=== PATIENT | female | born 1970 | race Two or more races ===

== ENCOUNTER 2017-05-04 09:16 | Emergency (ER) | payer OTHER, BC ==
[2017-05-04 10:39] VITALS: BP 98/62
--- NOTE | 2017-05-04 11:16 | UC ---
Throat Pain/Nasal [place] HPI - History of Current Complaint Chief Complaint: UCGeneralIllness Stated Complaint: FEVER Time Seen by Provider: 05/04/17 10:43 Hx Obtained From: Patient Hx Last Menstrual Period: 05/05 Onset/Duration: Gradual Onset - had "tickle" in throat 4 day ago, body aches next day and last night ST and fever 102. throat very sore today Severity: Worse Since: - today Associated Signs & Symptoms: Positive: Fever - Allergies/Home Medications Allergies/Adverse Reactions: Allergies Allergy/AdvReac Type Severity Reaction Status Date / Time Clindamycin Allergy Rash Verified 05/04/17 09:51 Penicillins Allergy Rash Verified 05/04/17 09:51 red meat Allergy Nausea And Uncoded 05/04/17 09:51 Vomiting Home Medications: Home Medications Acetaminophen [Eq Acetaminophen] 650 mg PO 05/04/17 [History] Cyanocobalamin INJ * [Vitamin B12 INJ *] 1,000 mcg IM MONTHLY 05/04/17 [History Confirmed 05/04/17] PMH/Surg Hx/FS Hx/Imm Hx Previously Healthy: Yes Endocrine History: Hypothyroidism GI/ History: Other - pernicious anemia Other GI/ History: pernicious anemia - Surgical History Surgical History: Yes Surgery Procedure, Year, and Place: c-sections x 2 - Family History Known Family History: Positive: None - Social History Occupation: Unemployed Lives: With Family Alcohol Use: Occasionally Substance Use Type: None Smoking Status (MU): Never Smoked Tobacco - Immunization History Most Recent Pneumonia Vaccination: 2012 Review of Systems Constitutional: Fever, Other - body aches Skin: Negative Eyes: Negative ENT: Sore Throat Respiratory: Negative Cardiovascular: Negative All Other Systems Reviewed And Are Negative: Yes Physical Exam Triage Information Reviewed: Yes Appearance: Well-Appearing, No Pain Distress, Well-Nourished Vital Signs: Initial Vital Signs Temp 98.4 F 05/04/17 10:23 Pulse 79 05/04/17 10:23 Resp 18 05/04/17 10:23 BP 98/62 05/04/17 10:23 Pulse Ox 100 05/04/17 10:23 Eye Exam: Normal ENT: Positive: Pharyngeal erythema, TMs normal, Tonsillar swelling, Tonsillar exudate Respiratory Exam: Normal Cardiovascular Exam: Normal Neurological Exam: Normal Psychological Exam: Normal Skin Exam: Normal Throat Pain/Nasal Course/Dx - Differential Dx/Diagnosis Differential Diagnosis/HQI/PQRI: Pharyngitis, Tonsillitis, URI Provider Diagnoses: tonsilitis Discharge - Discharge Plan Condition: Good Disposition: HOME Prescriptions: Azithromycin TAB* [Zithromax TAB (Z-YOGI) 250 mg #6 tabs] 2 tab PO .TODAY, THEN 1 DAILY #1 yogi
== END 2017-05-04 11:30 | disposition home or self-care (01) ==
LOC: UCEAST 09:16
DX: J03.90 Acute tonsillitis, unspecified (principal)
CPT/HCPCS: 87651; 99212; G0463

== ENCOUNTER 2018-10-16 12:57 | Emergency (ER) | payer OTHER ==
--- OUTSIDE RECORDS SUMMARY | 2018-10-16 13:02 | XMS REPORT ---
:1970 External Reference #:[id number] Author Organization [facility] Address [address] [place] [address] Phone [phone] Care Team Providers Name Role Phone Bonny Odonnell M.D. Care Team Information Embedded Systems Developer Unavailable Bonny Odonnell M.D. Primary Care Physician Unavailable Payers Type Date Identification Payment Subscriber Numbers Provider Health Maintenance Effective: Policy Number: [place] [employer] [place] [employer] [facility] ([facility] 03/12/2018 [id number] [facility] Group Number: [id number] [address] PayID: [id number] [place] [address] Problems Date Description Provider Status Onset: 09/01/2018 Moderate major depression, single episode Bonny Odonnell M.D. Active Onset: 12/30/2017 Alopecia totalis Bonny Odonnell M.D. Active Onset: 06/30/2017 Cobalamin deficiency Bonny Odonnell M.D. Active Onset: 06/30/2017 Hypothyroidism Bonny Odonnell M.D. Active Family History Date Family Member(s) Problem(s) Comments : (age 66 Years) Father due to [place] Father Coronary Artery Disease (CAD) Mother Hypothyroidism First Daughter Alexandr Thyroiditis Maternal Grandmother Hypothyroidism Social History Type Date Description Comments Education Highest Level Completed, [place] Master's Degree Marital Status . 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[employer]; works in [employer] services Cigarette Use 06/30/2017 Former Cigarette Smoker intermittently; started [age], quit 2015 ETOH Use Social Alcohol 2x/month Smoking Patient is a former smoker Exercise Type/Frequency Exercises regularly mehdi General Hx Text from [place] Allergies, Adverse Reactions, Alerts Date Description Reaction Status Severity Comments 06/30/2017 Penicillins active 06/30/2017 Clindamycin active 06/30/2017 Meat active 08/25/2018 Peanuts Itching, tingling active Medications Medication Date Status Form Strength Qnty SIG Indications Ordering Provider Levothyroxine 09/01 Active Tablets 100mcg 30tab 1 by mouth Bonny Sodium s every day Anna Odonnell Escitalopram 09/01 Active Tablets 10mg 45tab 1.5 tabs by F32.1 Bonny Oxalate s mouth every [place], M.DEfrain Cyanocobalamin Active Solution 1000mcg/M inject 1ml Unknown /0000 L intramuscular ly once a month Levothyroxine 02/24 Hx Tablets 88mcg 30tab 1 by mouth Bonny Sodium s every day Mely Odonnell M.D. 09/01 Levothyroxine 01/06 Hx Tablets 100mcg 30tab 1 by mouth Bonny Sodium s every day Mely Odonnell M.D. 02/24 Levothyroxine 06/30 Hx Tablets 112mcg 90tab 1 by mouth Bonny Sodium s every day Mely Odonnell M.D. 01/06 Vitamin 06/30 Hx Injection 1000 monthly Bonny B-Complex Mely Odonnell M.D. 12/29 Vital Signs Date Vital Result Comment 10/07/2018 BP Systolic 110 mmHg BP Diastolic 64 mmHg Heart Rate 68 /min Body Temperature 97.7 F Respiratory Rate 16 /min Weight 196.00 lb 09/01/2018 BP Systolic 118 mmHg BP Diastolic 70 mmHg Heart Rate 74 /min Body Temperature 97.3 F Respiratory Rate 20 /min O2 % BldC Oximetry 99 % on Ra Weight 196.00 lb 05/15/2018 BP Systolic 118 mmHg BP Diastolic 80 mmHg Heart Rate 76 /min Body Temperature 98.8 F Height 68 inches 5'8" Weight 195.00 lb BMI (Body Mass Index) 29.6 kg/m2 12/30/2017 BP Systolic 104 mmHg BP Diastolic 60 mmHg Heart Rate 72 /min Body Temperature 97.7 F Respiratory Rate 16 /min Height 68 inches 5'8" Weight 194.00 lb BMI (Body Mass Index) 29.5 kg/m2 06/30/2017 BP Systolic 116 mmHg BP Diastolic 70 mmHg Heart Rate 76 /min Body Temperature 97.7 F Respiratory Rate 16 /min Height 68 inches 5'8" Weight 178.38 lb BMI (Body Mass Index) 27.1 kg/m2 Results Test Date Test Result H/L Range Note Laboratory test finding 10/02/2018 TSH 3.17 mIU/L 0.50-6.00 Free T4 1.22 ng/dL 0.75-1.54 Laboratory test finding 08/28/2018 TSH 13.46 mIU/L High 0.50-6.00 1 Free T4 1.10 ng/dL 0.75-1.54 Laboratory test finding 05/15/2018 Quickstrep negative Negative Laboratory test finding 04/04/2018 TSH 5.53 mIU/L 0.50-6.00 Free T4 1.44 ng/dL 0.75-1.54 Laboratory test finding 02/14/2018 TSH 0.52 mIU/L 0.50-6.00 Free T4 1.80 ng/dL High 0.75-1.54 2 Laboratory test finding 12/30/2017 TSH 0.33 mIU/L Low 0.50-6.00 Free T4 1.94 ng/dL High 0.75-1.54 Serum Iron 100 g/dL 60-150 Ferritin 85 ng/mL 6-115 Vitamin B-12 369 pg/mL 230-1050 CBC Electronic a 12/30/2017 WBC 5.6 x10^3/UL 4.0-10.0 RBC 5.06 x10^6/UL 3.93-6.00 HGB 13.8 g/dL 12.0-17.0 HCT 42 % 35-50 MCV 83.0 fL 80.0-95.0 MCH 27.3 pg 25.6-32.2 MCHC 32.9 g/dL 32.2-36.0 RDW-CV 17.0 % High 11.6-14.4 PLT 219 x10^3/UL 163-400 MPV 10.3 fL 9.4-12.4 Renato# 3.52 x10^3/UL 1.56-6.13 Lymph# 1.53 x10^3/UL 1.18-3.74 Smith# 0.46 x10^3/UL 0.24-0.82 Eos # 0.1 x10^3/UL 0.0-0.5 Baso # 0.03 x10^3/UL 0.01-0.08 Renato% 62.7 % 34.0-70.0 Lymph % 27.3 % 20.0-52.0 Smith% 8.2 % 5.0-12.0 Eos% 1.1 % 0.7-7.0 Baso% 0.5 % 0.1-1.2 Comprehensive Metabolic Prof 12/30/2017 Sodium 143 mEq/L 134-149 Potassium 4.4 mEq/L 3.6-5.5 Chloride 101 mEq/L 94-112 Carbon Dioxide 27 mEq/L 21-32 Glucose 113 mg/dL High 70-105 3 BUN 9 mg/dL 6-26 Creatinine 0.8 mg/dL 0.6-1.4 BUN/Creat Ratio 11.3 CALC 8.0-36.0 Calcium 9.6 mg/dL 8.6-10.2 Total Protein 7.3 g/dL 6.4-8.3 Albumin 4.7 g/dL 3.8-5.5 Globulin 2.6 g/dL 2.0-4.8 A/G Ratio 1.8 CALC 0.6-2.3 Alk. Phosphatase 48 U/L 30-110 Alt (SGPT) 16 U/L 7-35 Ast (Sgot) 16 U/L 5-34 Total Bilirubin 0.6 mg/dL 0.2-1.3 GFR Non- >60 ml/min/1.73m^ >=60 GFR >60 ml/min/1.73m^ >=60 Lipid Profile 12/30/2017 Cholesterol 191 mg/dL 120-200 Triglycerides 124 mg/dL 30-200 HDL Cholesterol 54 mg/dL 30-85 LDL (Calculated) 112 CALC 0-129 VLDL Cholesterol 25 mg/dL 0-50 HDL Risk Factor 3.5 CALC 0.0-4.4 CBC Auto Diff 11/22/2017 White Blood Count 5.5 10^3/uL 3.5-10.8 Red Blood Count 4.39 10^6/uL 4.0-5.4 Hemoglobin 11.2 g/dL Low 12.0-16.0 Hematocrit 34 % Low 35-47 Mean Corpuscular Volume 78 fL Low 80-97 Mean Corpuscular Hemoglobin 26 pg Low 27-31 Mean Corpuscular HGB Conc 33 g/dL 31-36 Red Cell Distribution Width 15 % 10.5-15 Platelet Count 221 10^3/uL 150-450 Mean Platelet Volume 9 um3 7.4-10.4 Abs Neutrophils 3.3 10^3/uL 1.5-7.7 Abs Lymphocytes 1.7 10^3/uL 1.0-4.8 Abs Monocytes 0.4 10^3/uL 0-0.8 Abs Eosinophils 0 10^3/uL 0-0.6 Abs Basophils 0 10^3/uL 0-0.2 Abs Nucleated RBC 0 10^3/uL Granulocyte % 59.9 % 38-83 Lymphocyte % 31.0 % 25-47 Monocyte % 7.6 % 1-9 Eosinophil % 0.8 % 0-6 Basophil % 0.7 % 0-2 Nucleated Red Blood Cells % 0 Iron & Iron Binding Capacity 11/22/2017 Iron 31 g/dL Low 50-212 Unsaturated Iron Binding 437 g/dL Total Iron Binding Capacity 468 g/dL High 250-450 % Iron Saturation 7 % Low 15-55 Laboratory test finding 11/22/2017 Ferritin < 10.0 ng/mL Low 11-307 Vitamin B12 442 pg/mL 180-914 4 1 RESULTS VERIFIED BY REPEAT ANALYSIS 2 RESULTS VERIFIED BY REPEAT ANALYSIS 3 RESULTS VERIFIED BY REPEAT ANALYSIS 4 Normal Range 180 to 914 Indeterminate Range 145 to 180 Deficient Range <145 Procedures Date CPT Code Description Status 09/17/2018 Mammogram Completed 09/01/2018 73740 Brief Emotional/Behav Assessment W/ Scoring Doc Per Completed Standard Inst 09/01/2018 14437 Pulse Oximetry Completed 09/01/2018 05571 Electrocardiogram Complete Completed 09/16/2017 Mammogram Completed Encounters Type Date Location Provider CPT E/M Dx Office Visit 09/01/2018 11:20a [facility] Bonny Odonnell M.D. 95593 R00.2 F32.1 E03.9 Office Visit 05/15/2018 11:30a [place] [address] J02.9 Office Visit 12/30/2017 8:00a [facility] Bonny Odonnell M.D. 93506 E03.9 F33.41 D51.9 L63.0 Office Visit 06/30/2017 8:00a [facility] Bonny Odonnell M.D. 36502 E03.9 D51.9 F33.41 Plan of Care Future Appointment(s):01/13/2019 3:50 pm - Bonny Odonnell M.D. at [facility] [id number]/08/2019 4:30 pm - Bonny Odonnell M.D. at [facility] [id number]/07/2018 - Bonny Odonnell M.D.F32.1 Major depressive disorder, single episode, moderateNew Labs:CBC Electronic ([facility])CCS-Comp And Lipid ([facility])Comments:increase to 1.5 tabs a day, message in 1-2 weeks how its doingFollow up:[id number] Hypothyroidism , unspecifiedNew Labs:T4 & TSHComments:stable on medicationFollow up:3 mo labsAllComments:~B_~U_Medication Management~b_~u_ Patient Understands medications she's taking? Yes No Are there Barriers to Adherence? Yes No Has the patient been asked about herbal supplements and therapies, and OTC meds? Yes No
[2018-10-16 13:04] VITALS: BP 112/66
--- NOTE | 2018-10-16 14:57 | UC ---
Throat Pain/Nasal [place] HPI - HPI Summary HPI Summary: 48-year-old female presents with complaints of chills, earache, and a productive cough for yellow sputum for the past 3 weeks. Also notes some mild nausea. Denies fever, nasal congestion, sinus pain, sore throat, chest pain, shortness of breath, abdominal pain, vomiting, or diarrhea. - History of Current Complaint Chief Complaint: UCRespiratory Stated Complaint: THROAT PAIN Time Seen by Provider: 10/16/18 14:24 Hx Obtained From: Patient Hx Last Menstrual Period: 10/05/18 Pain Intensity: 2 - Allergies/Home Medications Allergies/Adverse Reactions: Allergies Allergy/AdvReac Type Severity Reaction Status Date / Time clindamycin Allergy Rash Verified 10/16/18 13:04 peanut Allergy Itching Verified 10/16/18 13:04 Penicillins Allergy Rash Verified 10/16/18 13:04 red meat Allergy Nausea And Uncoded 10/16/18 13:04 Vomiting Home Medications: Home Medications Citalopram TAB* [Celexa TAB*] 15 mg PO DAILY 10/16/18 [History Confirmed ] PMH/Surg Hx/FS Hx/Imm Hx Previously Healthy: Yes Endocrine History: Hypothyroidism Psychological History: Depression - Surgical History Surgical History: Yes Surgery Procedure, Year, and Place: c-sections x 2 - Family History Known Family History: Positive: Non-Contributory - Social History Occupation: Employed Full-time Lives: With Family Alcohol Use: Occasionally Substance Use Type: None Smoking Status (MU): Never Smoked Tobacco - Immunization History Most Recent Pneumonia Vaccination: 2012 Review of Systems All Other Systems Reviewed And Are Negative: Yes Constitutional: Negative: Fever, Chills Eyes: Negative: Drainage, Eye Redness ENT: Positive: Sore Throat, Ear Ache. Negative: Nasal Discharge, Sinus Congestion, Sinus Pain/Tenderness Respiratory: Positive: Cough. Negative: Shortness Of Breath Cardiovascular: Negative: Palpitations, Chest Pain Gastrointestinal: Negative: Abdominal Pain, Vomiting, Nausea Is Patient Immunocompromised?: No Physical Exam - Summary Physical Exam Summary: GENERAL APPEARANCE: Well developed, well nourished, alert and cooperative, and appears to be in no acute distress. EYES: Conjunctiva clear. No discharge. Vision is grossly intact. EARS: External auditory canals and tympanic membranes clear, hearing grossly intact. NOSE: No nasal discharge. THROAT: Mild pharyngeal erythema, 1+ tonsils with exudate. Oral cavity normal. Teeth and gingiva in good general condition. NECK: Neck supple, non-tender without lymphadenopathy. CARDIAC: Normal S1 and S2. No S3, S4 or murmurs. Rhythm is regular. There is no peripheral edema, cyanosis or pallor. Extremities are warm and well perfused. Capillary refill is less than 2 seconds. LUNGS: Clear to auscultation and percussion without rales, rhonchi, wheezing or diminished breath sounds. ABDOMEN: Positive bowel sounds. Soft, nondistended, nontender. No guarding or rebound. No masses or hepatosplenomegally. MUSKULOSKELETAL: ROM intact to all extremities. No joint erythema or tenderness. Normal muscular development. Normal gait. SKIN: Skin normal color, texture and turgor with no lesions or eruptions. Triage Information Reviewed: Yes Vital Signs: Initial Vital Signs Temp 97.7 F 10/16/18 12:59 Pulse 78 10/16/18 12:59 Resp 14 10/16/18 12:59 BP 112/66 10/16/18 12:59 Pulse Ox 100 10/16/18 12:59 Vital Signs Reviewed: Yes Diagnostics - Laboratory Diagnostic Studies Completed/Ordered: Rapid strep negative. Throat Pain/Nasal Course/Dx - Course Course Of Treatment: 48-year-old female presents with complaints of chills, earache, and a productive cough for yellow sputum for the past 3 weeks. Also notes some mild nausea. Denies fever, nasal congestion, sinus pain, sore throat , chest pain, shortness of breath, abdominal pain, vomiting, or diarrhea. Afebrile. Vital signs stable. Exam revealed some mild pharyngeal and tonsillar erythema with tonsillar exudate, clear bilateral breath sounds, and occasional nonproductive cough. Rapid strep was negative. Will treat for an acute bronchitis with a course of azithromycin and provided her with a prescription for Tessalon Perles one Every 8 hours as needed for cough. She is to follow-up with her primary care provider in 7 days if symptoms persist. Warning symptoms were reviewed with the patient. Verbalizes understanding and agrees with plan of care. - Differential Dx/Diagnosis Differential Diagnosis/HQI/PQRI: Otitis Media, Pharyngitis, Tonsillitis, URI, Other - Bronchitis Provider Diagnosis: Acute bronchitis Discharge - Sign-Out/Discharge Documenting (check all that apply): Patient Departure All imaging exams completed and their final reports reviewed: No Studies - Discharge Plan Condition: Stable Disposition: HOME Prescriptions: Azithromyxin YOGI (NF) [Z-Yogi (Zithromax) 250 mg tabs #6] 2 tab PO .TODAY, THEN 1 DAILY #6 tab Benzonatate CAP* [Tessalon 100 MG CAP*] 100 mg PO TID PRN #21 cap PRN Reason: Cough Patient Education Materials: Acute Bronchitis (ED) Referrals: Bonny Odonnell MD [Primary Care Provider] - 7 Days (If symptoms persist.) Additional Instructions: Your history and exam are consistent with an acute bronchitis. Considering the duration of your symptoms we will start you on an antibiotic. Take azithromycin 2 tabs today then 1 tab a day for next 4 days. Use Tessalon Perles 1 cap every 8 hours as needed for cough. Drink plenty of fluids to avoid dehydration especially if you are running any fever. Take over the counter acetaminophen (Tylenol) or ibuprofen (Advil, Motrin) according to directions as needed for pain or fever. Use salt water gargles several times a day if you have a sore throat. You may also use Chloraseptic spray or Cepacol lonzenges according to directions which contain a numbing medication and can provide some temporary relief from your sore throat. Follow up with your primary care provider in 7 days if symptoms persist. Seek immediate medical attention in the emergency room if you have fever greater than 100.5 F despite taking acetaminophen or ibuprofen, have chest pain , difficulty breathing, are unable to swallow, or have any worsening of symptoms. - Billing Disposition and Condition Condition: STABLE Disposition: Home
== END 2018-10-16 15:20 | disposition home or self-care (01) ==
LOC: UCEAST 12:57
DX: J20.9 Acute bronchitis, unspecified (principal); Z88.1 Allergy status to other antibiotic agents; Z91.018 Allergy to other foods; Z91.010 Allergy to peanuts
CPT/HCPCS: 87651; 99212; G0463

== ENCOUNTER 2019-03-16 07:56 | Emergency (ER) | payer OTHER ==
--- OUTSIDE RECORDS SUMMARY | 2019-03-16 08:00 | XMS REPORT | Continuity of Care Document ---
:1970 External Reference #:[id number] Author Name Bonny Odonnell M.D. Address [address] [facility] [place] [address] Care Team Providers Name Role Phone Bonny Odonnell M.D. Care Team Information Department Chair Unavailable Bonny Odonnell M.D. Primary Care Physician Unavailable Payers Date Identification Numbers Payment Provider Subscriber Effective: Policy Number: [id number] [employer] Stefano Olivarez 2018 Group Number: [id number] [id number] PayID: [id number] [place] [address] Advance Directives Description No Information Available Problems Active Problems Provider Date Moderate major depression, single episode Bonny Odonnell M.D. Onset: 2017 Alopecia totalis Bonny Odonnell M.D. Onset: 12/30/2017 Cobalamin deficiency Bonny Odonnell M.D. Onset: 06/30/2017 Hypothyroidism Bonny Odonnell M.D. Onset: 06/30/2017 Family History Date Family Member(s) Observation Comments General Heart Disease : (age 66 Years) Father due to PR Father Coronary Artery Disease (CAD) Mother Hypothyroidism Children 2 First Son Seasonal Allergies First Daughter Alexandr Thyroiditis Maternal Grandmother Hypothyroidism Social History Type Date Description Comments Sex Unknown Education Highest Level [employer] Completed, Master's Degree Marital Status . 20 years 2020 Lives With Spouse Lives With Children x2 Diet Patient is a vegetarian mainly Occupation [employer]; works in [employer] Tobacco Use Start: Unknown Former Cigarette Smoker intermittently; End: Unknown started , quit 2016 Smoking Status Reviewed: 02/20/19 Former Cigarette Smoker intermittently; started -, quit 2015 ETOH Use Social Alcohol 2x/month Tobacco Use Start: Unknown Patient is a former End: Unknown smoker Exercise Type/Frequency Exercises regularly mehdi Currently Active Patient is currently sexually active Condom Use Occasionally Contraceptive Methods Current methods include rhythm method Allergies, Adverse Reactions, Alerts Active Allergies Reaction Severity Comments Date Penicillins 06/30/2017 Clindamycin 06/30/2017 Meat 06/30/2017 Peanuts Itching, tingling 08/25/2018 Medications Active Medications SIG Qnty Indications Ordering Date Provider Levothyroxine Sodium 1 by mouth every day 30tabs [facility], 01/13/2019 M.D. 112mcg Tablets Escitalopram Oxalate 3 tabs daily 90tabs F32.1 [facility], 01/13/2019 M.D. 5mg Tablets Cyanocobalamin inject 1ml Unknown intramuscularly once 1000mcg/ML Solution a month History Medications Levothyroxine Sodium 1 by mouth every 30tabs [facility], 09/01/2018 - day M.D. 01/13/2019 100mcg Tablets Escitalopram Oxalate 1.5 tabs by 45tabs F32.1 [facility] 09/01/2018 - 10mg mouth every day M.D. 01/13/2019 Tablets Levothyroxine Sodium 1 by mouth every 30tabs [facility], 02/24/2018 - day M.D. 09/01/2018 88mcg Tablets Levothyroxine Sodium 1 by mouth every 30tabs [facility], 01/06/2018 - day M.D. 02/24/2018 100mcg Tablets Levothyroxine Sodium 1 by mouth every 90tabs [facility] 06/30/2017 - day M.D. 01/06/2018 112mcg Tablets Vitamin B-Complex 100 monthly [facility] 06/30/2017 - M.D. 12/29/2017 1000 Injection Immunizations Description No Information Available Vital Signs Date Vital Result Comment 02/20/2019 9:18am BP Systolic 98 mmHg BP Diastolic 52 mmHg Heart Rate 80 /min Body Temperature 98.0 F Respiratory Rate 16 /min Height 68 inches 5'8" Weight 204.00 lb BMI (Body Mass Index) 31.0 kg/m2 01/13/2019 3:30pm BP Systolic 118 mmHg BP Diastolic 70 mmHg Heart Rate 68 /min Body Temperature 98.5 F Respiratory Rate 16 /min Weight 205.00 lb 10/07/2018 3:13pm BP Systolic 110 mmHg BP Diastolic 64 mmHg Heart Rate 68 /min Body Temperature 97.7 F Respiratory Rate 16 /min Weight 196.00 lb 09/01/2018 11:03am BP Systolic 118 mmHg BP Diastolic 70 mmHg Heart Rate 74 /min Body Temperature 97.3 F Respiratory Rate 20 /min O2 % BldC Oximetry 99 % on Ra Weight 196.00 lb 05/15/2018 11:11am BP Systolic 118 mmHg BP Diastolic 80 mmHg Heart Rate 76 /min Body Temperature 98.8 F Height 68 inches 5'8" Weight 195.00 lb BMI (Body Mass Index) 29.6 kg/m2 12/30/2017 8:06am BP Systolic 104 mmHg BP Diastolic 60 mmHg Heart Rate 72 /min Body Temperature 97.7 F Respiratory Rate 16 /min Height 68 inches 5'8" Weight 194.00 lb BMI (Body Mass Index) 29.5 kg/m2 06/30/2017 8:10am BP Systolic 116 mmHg BP Diastolic 70 mmHg Heart Rate 76 /min Body Temperature 97.7 F Respiratory Rate 16 /min Height 68 inches 5'8" Weight 178.38 lb BMI (Body Mass Index) 27.1 kg/m2 Results Test Date Facility Test Result H/L Range Note Laboratory test 02/20/2019 [facility] hCG, Beta <pending> finding [address] [facility] [address], [place] [address] Qnt, Serum (607)- - Comprehensive 02/12/2019 [facility]) Sodium 139 mEq/L 134-149 Metabolic Prof Potassium 4.7 mEq/L 3.6-5.5 Chloride 100 mEq/L 94-112 Carbon Dioxide 30 mEq/L 21-32 Glucose 113 mg/dL High 70-105 BUN 8 mg/dL 6-26 Creatinine 0.9 mg/dL 0.6-1.4 BUN/Creat Ratio 8.9 CALC 8.0-36.0 Calcium 9.4 mg/dL 8.6-10.2 Total Protein 7.1 g/dL 6.4-8.3 Albumin 4.7 g/dL 3.8-5.5 Globulin 2.4 g/dL 2.0-4.8 A/G Ratio 2.0 CALC 0.6-2.3 Alk. Phosphatase 59 U/L 30-110 Alt (SGPT) 25 U/L 7-35 Ast (Sgot) 23 U/L 5-34 Total Bilirubin 1.3 mg/dL 0.2-1.3 GFR Non- >60 ml/min/1.73m^ >=60 GFR >60 ml/min/1.73m^ >=60 CBC Electronic Fma 02/12/2019 [facility]) WBC 5.6 x10^3/UL 4.0- 10.0 RBC 4.74 x10^6/UL 3.93-6.00 HGB 14.1 g/dL 12.0-17.0 HCT 42 % 35-50 MCV 88.0 fL 80.0-95.0 MCH 29.7 pg 25.6-32.2 MCHC 33.8 g/dL 32.2-36.0 RDW-CV 14.3 % 11.6-14.4 PLT 183 x10^3/UL 163-400 MPV 10.1 fL 9.4-12.4 Renato# 3.41 x10^3/UL 1.56-6.13 Lymph# 1.49 x10^3/UL 1.18-3.74 [place]# 0.50 x10^3/UL 0.24-0.82 Eos # 0.1 x10^3/UL 0.0-0.5 Baso # 0.03 x10^3/UL 0.01-0.08 Renato% 61.5 % 34.0-70.0 Lymph % 26.8 % 20.0-52.0 [place]% 9.0 % 5.0-12.0 Eos% 1.8 % 0.7-7.0 Baso% 0.5 % 0.1-1.2 Lipid Profile 02/12/2019 [facility]) Cholesterol 245 mg/dL High 120-200 Triglycerides 115 mg/dL 30-200 HDL Cholesterol 61 mg/dL 30-85 LDL (Calculated) 161 CALC High 0-129 VLDL Cholesterol 23 mg/dL 0-50 HDL Risk Factor 4.0 CALC 0.0-4.4 Laboratory test finding 02/12/2019 [facility]) TSH 0.67 mIU/L 0.50-6.00 Free T4 1.64 ng/dL High 0.75-1.54 1 CBC Electronic Fma 01/08/2019 [facility]) WBC 6.8 x10^3/UL 4.0- 10.0 RBC 4.70 x10^6/UL 3.93-6.00 HGB 13.7 g/dL 12.0-17.0 HCT 41 % 35-50 MCV 87.9 fL 80.0-95.0 MCH 29.1 pg 25.6-32.2 MCHC 33.2 g/dL 32.2-36.0 RDW-CV 16.3 % High 11.6-14.4 PLT 221 x10^3/UL 163-400 MPV 11.0 fL 9.4-12.4 Renato# 4.44 x10^3/UL 1.56-6.13 Lymph# 1.72 x10^3/UL 1.18-3.74 [place]# 0.50 x10^3/UL 0.24-0.82 Eos # 0.0 x10^3/UL 0.0-0.5 Baso # 0.03 x10^3/UL 0.01-0.08 Renato% 65.6 % 34.0-70.0 Lymph % 25.4 % 20.0-52.0 [place]% 7.4 % 5.0-12.0 Eos% 0.6 % Low 0.7-7.0 Baso% 0.4 % 0.1-1.2 Laboratory test 01/08/2019 [facility]) TSH 6.88 mIU/L High 0.50- 6.00 finding Free T4 1.21 ng/dL 0.75-1.54 LDL, Direct 122 mg/dL 0-130 Lipid Profile 01/08/2019 [facility]) Cholesterol 203 mg/dL High 120-200 Triglycerides 330 mg/dL High 30-200 HDL Cholesterol 59 mg/dL 30-85 LDL (Calculated) 78 CALC 0-129 VLDL Cholesterol 66 mg/dL High 0-50 HDL Risk Factor 3.4 CALC 0.0-4.4 Comprehensive Metabolic 01/08/2019 [facility]) Sodium 141 mEq/L 134-149 Prof Potassium 4.3 mEq/L 3.6-5.5 Chloride 105 mEq/L 94-112 Carbon Dioxide 23 mEq/L 21-32 Glucose 98 mg/dL 70-105 BUN 11 mg/dL 6-26 Creatinine 0.9 mg/dL 0.6-1.4 BUN/Creat Ratio 12.2 CALC 8.0-36.0 Calcium 9.8 mg/dL 8.6-10.2 Total Protein 7.9 g/dL 6.4-8.3 Albumin 5.0 g/dL 3.8-5.5 Globulin 2.9 g/dL 2.0-4.8 A/G Ratio 1.7 CALC 0.6-2.3 Alk. Phosphatase 69 U/L 30-110 Alt (SGPT) 22 U/L 7-35 Ast (Sgot) 19 U/L 5-34 Total Bilirubin 0.7 mg/dL 0.2-1.3 GFR Non- >60 ml/min/1.73m^ >=60 GFR >60 ml/min/1.73m^ >=60 Laboratory test 10/16/2018 [facility] Rapid Strep Negative Negative 2 finding Molecular Laboratory test 10/02/2018 [facility]) TSH 3.17 mIU/L 0.50-6.00 finding Free T4 1.22 ng/dL 0.75-1.54 Laboratory test 08/28/2018 [facility]) TSH 13.46 mIU/L High 0.50- 6.00 3 finding Free T4 1.10 ng/dL 0.75-1.54 Laboratory test 05/15/2018 [facility] Quickstrep negative Negative finding (607)- - Laboratory test 04/04/2018 [facility]) TSH 5.53 mIU/L 0.50-6.00 finding Free T4 1.44 ng/dL 0.75-1.54 Laboratory test finding 02/14/2018 [facility]) TSH 0.52 mIU/L 0.50-6.00 Free T4 1.80 ng/dL High 0.75-1.54 4 Laboratory test finding 12/30/2017 [facility]) TSH 0.33 mIU/L Low 0.50-6.00 Free T4 1.94 ng/dL High 0.75-1.54 Serum Iron 100 g/dL 60-150 Ferritin 85 ng/mL 6-115 Vitamin B-12 369 pg/mL 230-1050 CBC Electronic [facility] 12/30/2017 [facility]) WBC 5.6 x10^3/UL 4.0- 10.0 RBC 5.06 x10^6/UL 3.93-6.00 HGB 13.8 g/dL 12.0-17.0 HCT 42 % 35-50 MCV 83.0 fL 80.0-95.0 MCH 27.3 pg 25.6-32.2 MCHC 32.9 g/dL 32.2-36.0 RDW-CV 17.0 % High 11.6-14.4 PLT 219 x10^3/UL 163-400 MPV 10.3 fL 9.4-12.4 Renato# 3.52 x10^3/UL 1.56-6.13 Lymph# 1.53 x10^3/UL 1.18-3.74 [place]# 0.46 x10^3/UL 0.24-0.82 Eos # 0.1 x10^3/UL 0.0-0.5 Baso # 0.03 x10^3/UL 0.01-0.08 Renato% 62.7 % 34.0-70.0 Lymph % 27.3 % 20.0-52.0 [place]% 8.2 % 5.0-12.0 Eos% 1.1 % 0.7-7.0 Baso% 0.5 % 0.1-1.2 Comprehensive Metabolic 12/30/2017 [facility]) Sodium 143 mEq/L 134-149 Prof Potassium 4.4 mEq/L 3.6-5.5 Chloride 101 mEq/L 94-112 Carbon Dioxide 27 mEq/L 21-32 Glucose 113 mg/dL High 70-105 5 BUN 9 mg/dL 6-26 Creatinine 0.8 mg/dL [...] GFR >60 ml/min/1.73m^ >=60 Lipid Profile 12/30/2017 [facility]) Cholesterol 191 mg/dL 120- 200 Triglycerides 124 mg/dL 30-200 HDL Cholesterol 54 mg/dL 30-85 LDL (Calculated) 112 CALC 0-129 VLDL Cholesterol 25 mg/dL 0-50 HDL Risk Factor 3.5 CALC 0.0-4.4 CBC Auto Diff 11/22/2017 [facility] White Blood Count 5.5 10^3/uL N 3.5-10.8 Red Blood Count 4.39 10^6/uL N 4.0-5.4 Hemoglobin 11.2 g/dL Low 12.0-16.0 Hematocrit 34 % Low 35-47 Mean Corpuscular Volume 78 fL Low 80-97 Mean Corpuscular Hemoglobin 26 pg Low 27-31 Mean Corpuscular HGB Conc 33 g/dL N 31-36 Red Cell Distribution Width 15 % N 10.5-15 Platelet Count 221 10^3/uL N 150-450 Mean Platelet Volume 9 um3 N 7.4-10.4 Abs Neutrophils 3.3 10^3/uL N 1.5-7.7 Abs Lymphocytes 1.7 10^3/uL N 1.0-4.8 Abs Monocytes 0.4 10^3/uL N 0-0.8 Abs Eosinophils 0 10^3/uL N 0-0.6 Abs Basophils 0 10^3/uL N 0-0.2 Abs Nucleated RBC 0 10^3/uL Granulocyte % 59.9 % N 38-83 Lymphocyte % 31.0 % N 25-47 Monocyte % 7.6 % N 1-9 Eosinophil % 0.8 % N 0-6 Basophil % 0.7 % N 0-2 Nucleated Red Blood Cells % 0 Iron & Iron Binding Capacity 11/22/2017 [facility] Iron 31 g/dL Low 50-212 Unsaturated Iron Binding 437 g/dL Total Iron Binding Capacity 468 g/dL High 250-450 % Iron Saturation 7 % Low 15-55 Laboratory test finding 11/22/2017 [facility] Ferritin < 10.0 ng/mL Low 11-307 Vitamin B12 442 pg/mL N 180-914 6 1 RESULTS VERIFIED BY REPEAT ANALYSIS 2 [place] [employer]: [id number] RESULTS VERIFIED BY REPEAT ANALYSIS 4 RESULTS VERIFIED BY REPEAT ANALYSIS 5 RESULTS VERIFIED BY REPEAT ANALYSIS 6 Normal Range 180 to 914 Indeterminate Range 145 to 180 Deficient Range <145 Procedures Date Code Description Status 09/17/2018 [id number] Mammogram Completed 09/01/2018 06412 Brief Emotional/Behav Assessment W/ Scoring Doc Per Completed Standard Inst 09/01/2018 49566 Pulse Oximetry Completed 09/01/2018 28607 Electrocardiogram Complete Completed 09/16/2017 [id number] Mammogram Completed Encounters Type Date Location Provider Dx Diagnosis Office Visit 01/13/2019 [facility] Bonny Odonnell, F32.1 Major depressive 3:50p M.D. disorder, single episode, moderate E03.9 Hypothyroidism, unspecified D51.9 Vitamin B12 deficiency anemia, unspecified Office Visit 10/07/2018 3:20p [facility] Bonny Odonnell, F32.1 Major depressive M.D. disorder, single episode, moderate E03.9 Hypothyroidism, unspecified Office Visit 09/01/2018 11:20a [facility] Bonny Odonnell M.D. R00.2 Palpitations F32.1 Major depressive disorder, single episode, moderate E03.9 Hypothyroidism, unspecified Office Visit 05/15/2018 11:30a [facility] Amanda Balderas J02.9 Acute pharyngitis, [place], DEPARTMENT MGR unspecified Office Visit 12/30/2017 8:00a [facility] Bonny Odonnell, E03.9 Hypothyroidism, M.D. unspecified F33.41 Major depressive disorder, recurrent, in partial remission D51.9 Vitamin B12 deficiency anemia, unspecified L63.0 Alopecia (capitis) totalis Office Visit 06/30/2017 8:00a [facility] Office Bonny Odonnell, E03.9 Hypothyroidism, M.D. unspecified D51.9 Vitamin B12 deficiency anemia, unspecified F33.41 Major depressive disorder, recurrent, in partial remission Plan of Treatment Future Appointment(s):06/01/2019 10:40 am - Bonny Odonnell M.D. at [facility]05/24/2019 8:15 am - Bonny Odonnell M.D. at [facility]02/20/2019 - Bonny Odonnell M.D.Z00.00 Encounter for general adult medical examination without abnormal findingsComments:Encourage an active and healthy lifestyle with proper eating habits including fruits, vegetables, 6-8 glasses of water a day and monitoring portion size. Recommend 30 minutes of daily physical activityincluding walking, aerobic exercise, sports, yoga or dance. Any activity is better than no activity.Recommend routine eye and dental exams. Next physical is due in 1-2 years.F32.1 Major depressive disorder, single episode, moderateComments:stable on dosing, discussed if worsening call officeFollow up:6 moE03.9 Hypothyroidism, unspecifiedNew Labs:TSH ([facility]/ [facility]), Ordered: 02/20/19Free T4 ([facility]), Ordered: 02/20/19Comments: check labs 3 mo, stable on iaalquydqkC35.9 Vitamin B12 deficiency anemia, unspecifiedComments:sees Dr Demarco, on B12 injections yclxturU64.0 Alopecia ( capitis) flglctxZ29.5 Hyperlipidemia, unspecifiedNew Labs:Lipid Panel-[facility], Ordered: 02/20/19Comp Metabolic-[facility], Ordered: Comments:Goal LDL is <130, HDL >40, Triglycerides <200N91.2 Amenorrhea, unspecifiedComments:discussed contraception and risk of qkkduzavvD14.9 Obesity, unspecifiedComments:Counseled on heart healthy diet such as Mediterranean diet. Eat protein and vegetables first then carbohydrates last. Get at least 150 minutes of moderate aerobic activity or 75 minutes of vigorous aerobic activity a week, or a combination of moderate and vigorous activity. General goal of 30 minutes of physical activity a day.R73.01 Impaired fasting glucoseNew Labs:Hemoglobin A1c ([facility]), Ordered: 02/20/19Comments: Counseled on heart healthy diet and exercise including limiting carbs and portion control and at least 30 minutes of physical activity daily. Consider Mediterranean diet as a guide for healthy eating. A1c> 6.5 is diagnostic of diabetesFollow up:3 months fasting labsAllComments:Medication Management Patient Understands medications she's taking? Yes No Are there Barriers to Adherence? Yes No Has the patient been asked about herbal supplements and therapies, and OTC meds? Yes No
[2019-03-16 08:09] VITALS: BP 108/64
--- NOTE | 2019-03-16 08:56 | UC ---
General HPI - HPI Summary HPI Summary: Patient c/o 6 days of sore throat. Last fever was 4 days ago. Having a hard time with solids and taking frequent small sips. +Congestion and post nasal drip. Occasional cough. No N/V/D. No rash. Meds: Reviewed - History of Current Complaint Chief Complaint: UCGeneralIllness Stated Complaint: SORE THROAT Time Seen by Provider: 03/16/19 08:11 Hx Last Menstrual Period: 02/26/19 Pain Intensity: 8 - Allergy/Home Medications Allergies/Adverse Reactions: Allergies Allergy/AdvReac Type Severity Reaction Status Date / Time clindamycin Allergy Rash Verified 03/16/19 08:01 peanut Allergy Itching Verified 03/16/19 08:01 Penicillins Allergy Rash Verified 03/16/19 08:01 red meat Allergy Nausea And Uncoded 03/16/19 08:01 Vomiting PMH/Surg Hx/FS Hx/Imm Hx Previously Healthy: Yes - Surgical History Surgical History: Yes Surgery Procedure, Year, and Place: c-sections x 2. adenoidectomy - Family History Known Family History: Positive: Non-Contributory - Social History Alcohol Use: None Substance Use Type: None Smoking Status (MU): Never Smoked Tobacco - Immunization History Most Recent Pneumonia Vaccination: 2012 Review of Systems All Other Systems Reviewed And Are Negative: Yes Constitutional: Positive: Fever ENT: Positive: Sore Throat, Sinus Congestion Respiratory: Positive: Cough Gastrointestinal: Positive: Negative Physical Exam Triage Information Reviewed: Yes Appearance: Well-Appearing Vital Signs: Initial Vital Signs Temp 98.1 F 03/16/19 08:03 Pulse 75 03/16/19 08:03 Resp 18 03/16/19 08:03 BP 108/64 03/16/19 08:03 Pulse Ox 97 03/16/19 08:03 Vital Signs Reviewed: Yes ENT: Positive: Pharyngeal erythema, Nasal congestion, Tonsillar swelling Neck: Positive: Supple, Enlarged Nodes @ - anterior cervical chain Respiratory: Positive: Lungs clear, Normal breath sounds Cardiovascular: Positive: RRR, No Murmur Course/Dx - Course Course Of Treatment: This is a 48 yr old here with sore throat Assessment Nontoxic appearing Rapid strep negative Declined mono testing Plan Continue supportive care Recommend ibuprofen 600 mg every 4-6 hours for pain - take with food Continue fluids and rest Can also try warm salt water rinses If symptoms persist or worsen, contact your primary care provider or return to urgent care - Diagnoses Provider Diagnosis: Acute viral pharyngitis Discharge - Sign-Out/Discharge Documenting (check all that apply): Patient Departure All imaging exams completed and their final reports reviewed: No Studies - Discharge Plan Condition: Fair Disposition: HOME Patient Education Materials: Pharyngitis (ED) Referrals: Bonny Odonnell MD [Primary Care Provider] - Additional Instructions: Continue supportive care Recommend ibuprofen 600 mg every 4-6 hours for pain - take with food Continue fluids and rest Can also try warm salt water rinses If symptoms persist or worsen, contact your primary care provider or return to urgent care Trial of sudafed for post nasal drip - Billing Disposition and Condition Condition: FAIR Disposition: Home
== END 2019-03-16 09:00 | disposition home or self-care (01) ==
LOC: UCEAST 07:56
DX: J02.9 Acute pharyngitis, unspecified (principal); R09.81 Nasal congestion; Z88.1 Allergy status to other antibiotic agents; Z91.010 Allergy to peanuts; Z91.018 Allergy to other foods; Z88.0 Allergy status to penicillin
CPT/HCPCS: 87651; 99211; G0463